=== PATIENT | male | born 1965 | race Caucasian/White ===

== ENCOUNTER 2016-08-05 18:38 | Inpatient (IN) | payer OTHER ==
[~2016-08-05] VITALS: Ht 185.4 cm; Wt 83.8 kg
[2016-08-05] MEDS ORDERED: cefTRIAXone SODIUM 1,000 MG in SODIUM CHLORIDE 50 ML IV ONE (21:40)
[2016-08-05 22:36] LABS: ANION GAP 13.9 MEQ/L (3-15)
[2016-08-05 22:40] LABS: MEAN CORPUSCULAR VOLUME 87 FL (80-100); MEAN PLATELET VOLUME 10.7 FL (6.0-9.5); PLATELET COUNT 258 10^3uL (150-450)
[2016-08-05 22:43] LABS: MEAN CORPUSCULAR HEMOGLOBIN 32.2 PG (26.0-34.0); MEAN CORPUSCULAR HGB CONC 37.2 g/dL (31.0-37.0)
[2016-08-05] MEDS ORDERED: HYDROmorphone 1 MG/ML (DILAUDID) SYRINGE IV ONE (23:15)
[2016-08-05 23:45] LABS: BAND NEUTROPHILS % 3 % (0-6); EOSINOPHILS % 0 % (0-4); LYMPHOCYTES # 1.8 #; MONOCYTES # 1.2 #; MONOCYTES % 8 % (3-11); SEGMENTED NEUTROPHILS % 77 % (51-67); TOTAL CELLS COUNTED 100
[2016-08-05 23:46] LABS: RBC MORPH NORMAL (NORMAL)
[2016-08-06] MEDS ORDERED: VANCOMYCIN PHARMACY PROTOCOL IV SCH
[2016-08-06] MEDS ORDERED: DOCUSATE SODIUM 100 MG (COLACE) CAP PO PRN
[2016-08-06] MEDS ORDERED: HYDROcodone/APAP 5 MG/325 MG (NORCO) TAB PO PRN
[2016-08-06] MEDS ORDERED: ACETAMINOPHEN 325 MG TAB (TYLENOL) PO PRN
--- NOTE | 2016-08-06 00:18 | NUR ---
Pt arrives to 318 via w/c from ED. Ambulates with assistance to weight chair and bed. Noted swelling and redness to nose with small black spot above left nare. Left axilla also has areas of slight swelling and healing. IVF started per order. See admission assessment for further details.
[2016-08-06] MEDS: D5 1/2 NS W/KCL 20 MEQ/L 1,000 ML IV SCH ×2 (00:21→11:28)
[2016-08-06 00:28] VITALS: BP 134/91
[2016-08-06 00:30] VITALS: BP 134/91
[2016-08-06] MEDS ORDERED: SODIUM CHLORIDE 250 ML ONE (01:03)
[2016-08-06] MEDS ORDERED: VANCOMYCIN 1000 MG VIAL ONE (01:03)
[2016-08-06 04:00] VITALS: BP 106/77
[2016-08-06 06:12] LABS: MEAN CORPUSCULAR VOLUME 87 FL (80-100); MEAN PLATELET VOLUME 10.7 FL (6.0-9.5); PLATELET COUNT 400 10^3uL (150-450); WHITE BLOOD COUNT 21.66 10^3uL (4.0-11.0)
--- NOTE | 2016-08-06 06:21 | NUR ---
Pt rests in long intervals. Up with staff assist x1 to use the bathroom. IVF infusing w/o difficulty. Resp even and non labored on RA.
[2016-08-06 06:43] LABS: MEAN CORPUSCULAR HEMOGLOBIN 31.3 PG (26.0-34.0); MEAN CORPUSCULAR HGB CONC 35.9 g/dL (31.0-37.0)
[2016-08-06 06:52] LABS: ANION GAP 14.1 MEQ/L (3-15)
[2016-08-06 07:15] LABS: BAND NEUTROPHILS % 1 % (0-6); EOSINOPHILS % 1 % (0-4); LYMPHOCYTES # 2.2 #; MONOCYTES # 1.5 #; MONOCYTES % 7 % (3-11); SEGMENTED NEUTROPHILS % 81 % (51-67); TOTAL CELLS COUNTED 100
[2016-08-06 07:16] LABS: RBC MORPH NORMAL (NORMAL)
[2016-08-06] MEDS ORDERED: NS FLUSH 3 ML PRN IV (08:05)
[2016-08-06] MEDS: FAMOTIDINE 20 MG (PEPCID) TABLET PO SCH ×2 (08:37→19:46)
[2016-08-06] MEDS: NS FLUSH 10 ML PRN IV ×3 (08:37→18:17)
[2016-08-06] MEDS: HYDROmorphone 1 MG/ML (DILAUDID) SYRINGE IV PRN ×4 (08:37→19:47)
[2016-08-06] MEDS: POTASSIUM CHLORIDE ORAL SOLUTION 20 MEQ/15 ML (KCL) UDC PO SCH ×2 (08:37→16:54)
[2016-08-06] MEDS: NS FLUSH 3 ML DAILY IV SCH ×2 (08:38→19:47)
--- NOTE | 2016-08-06 08:40 | NUR ---
Pt sitting on edge of bed- rates head/nose pain 02/12- states "hurts so bad I don't even want to eat." Dilaudid 0.5mg IV given as ordered slow push. IVF infusing as ordered +Vanco 1g infusing as ordered. Pt takes K+ in orange juice on ice without difficulty. call light within reach.
[2016-08-06] MEDS: VANCOMYCIN 1,000 MG in SODIUM CHLORIDE 250 ML IV SCH ×3 (08:52→21:58)
[2016-08-06 08:53] VITALS: BP 122/80
--- NOTE | 2016-08-06 11:30 | NUR ---
MED REC COMPLETE--patient reports no home medications.
--- NOTE | 2016-08-06 13:33 | NUR ---
[place] 5mg PO given for c/o facial/head pain rated 8/10. Pt resting in bed. IVF cont at ordered rate
[2016-08-06] MEDS ORDERED: CLINDAMYCIN 600 MG/4ML (CLEOCIN) VIAL IM SCH (14:05)
[2016-08-06] MEDS: NICOTINE 21 MG (NICODERM) PATCH TD SCH (14:29)
[2016-08-06] MEDS: CLINDAMYCIN INJ 600 MG in SODIUM CHLORIDE 50 ML IV SCH ×2 (14:30→21:20)
--- NOTE | 2016-08-06 14:35 | NUR ---
Pt given Dilaudid 0.5mg IV for 10/[address] Larson cultured wound on nose.
--- NOTE | 2016-08-06 15:30 | NUR ---
Vancomycin Dosing: Pharmacy Managed S: Facial cellulitis O: 50 yo male with erythema and swelling to nose; blood culture pending, abscess culture pending; WBC 21,666 with 81% neutrophils, SCr 0.81 mg/dL, CrCl > 100 mL/min. A/P: Vancomycin and clindamycin initiated empirically. Recommend vancomycin 1 gram IV every 8 hours to achieve therapeutic goal of trough of ~15 mcg/mL. Draw trough prior to 5th dose (08/07/16 at 0530).
[2016-08-06 15:47] VITALS: BP 128/77
[2016-08-06] MEDS: KETOROLAC 15 MG/ML (TORADOL) 1 ML VIAL IV SCH ×2 (16:44→23:44)
[2016-08-06] MEDS ORDERED: KETOROLAC 15 MG/ML (TORADOL) 1 ML VIAL ONE (16:44)
--- NOTE | 2016-08-06 17:50 | NUR ---
Pt given Dilaudid 0.5mg IV at 1645 for 02/12 headache. Ketoralac 15mg IV given as well. Pt requests to shower today. Emerita, sister called by this nurse to bring clean clothes. Addendum: 08/06/16 at 1752 by Carolyn Guzman RN Eating supper meal.
[2016-08-06] MEDS: HYDROcodone/APAP 5 MG/325 MG (NORCO) TAB PO PRN (18:17)
[2016-08-06] MEDS: ONDANSETRON 2 MG/ML (Z0FRAN) 2 ML VIAL IV PRN (18:17)
--- NOTE | 2016-08-06 18:22 | NUR ---
Pt requests medication for nausea- Zofran given as ordered. [place] 5mg 2 tabs given for head/face pain rated 10/10.
--- NOTE | 2016-08-06 20:09 | NUR ---
Pt sitting on side of bed, states continues to have pain in head area, will give Dilaudid 0.5mg IV PRN, educated pt on PRN schedule. PM assessment done, lungs clear, denies dyspnea, on room air. Abdomen soft, non-tender. Requests supper tray items be left in room for him to snack on. IV to right hand patent, flushes easily with med administration. Educated regarding pt safety due to narcotic medications being given, pt verbalizes understanding and will call for assistance ambulating. Call light in reach. Will round frequently for cares.
[2016-08-06] MEDS ORDERED: NS 100 ML (IVPB) BAG IV PRN (21:30)
[2016-08-06 23:54] VITALS: BP 135/78
--- NOTE | 2016-08-07 00:07 | NUR ---
Pt continues to complain of pain to head area, increased drainage noted from left nostril, chux provided to lay on bed to prevent saturating sheet. Scheduled Toradol 15mg given, will continue to monitor pain and give PRN meds to control pain.
[2016-08-07] MEDS: HYDROcodone/APAP 5 MG/325 MG (NORCO) TAB PO PRN ×4 (00:27→19:47)
--- NOTE | 2016-08-07 01:15 | NUR ---
Patient encouraged to call for any needs and assured that staff would be checking on him.
--- NOTE | 2016-08-07 02:20 | NUR ---
Patient resting quietly with eyes closed.
--- NOTE | 2016-08-07 03:20 | NUR ---
Resting quietly with eyes closed. Patient has changed position from last check.
[2016-08-07] MEDS: HYDROmorphone 1 MG/ML (DILAUDID) SYRINGE IV PRN ×2 (04:17→07:01)
[2016-08-07] MEDS: NS FLUSH 10 ML PRN IV ×4 (04:17→11:18)
--- NOTE | 2016-08-07 04:17 | NUR ---
Dilaudid given for pain rated 9/10. Nose remains red and swollen.
[2016-08-07 06:05] LABS: BASOPHILS % (AUTO) 0 % (0-2); EOSINOPHILS # (AUTO) 0.1 10^3uL; EOSINOPHILS % (AUTO) 1 % (0-4); LYMPHOCYTES # (AUTO) 1.8 X10^3; MEAN CORPUSCULAR VOLUME 89 FL (80-100); MEAN PLATELET VOLUME 10.9 FL (6.0-9.5); MONOCYTES # (AUTO) 0.7 X10^3; MONOCYTES % (AUTO) 5 % (3-11); NEUTROPHILS # (AUTO) 10.9 X10^3; NEUTROPHILS % (AUTO) 80 % (51-67); PLATELET COUNT 378 10^3uL (150-450); WHITE BLOOD COUNT 13.62 10^3uL (4.0-11.0)
[2016-08-07 06:07] LABS: MEAN CORPUSCULAR HEMOGLOBIN 31.4 PG (26.0-34.0); MEAN CORPUSCULAR HGB CONC 35.6 g/dL (31.0-37.0)
[2016-08-07] MEDS: KETOROLAC 15 MG/ML (TORADOL) 1 ML VIAL IV SCH ×3 (06:12→17:17)
[2016-08-07] MEDS: CLINDAMYCIN INJ 600 MG in SODIUM CHLORIDE 50 ML IV SCH ×3 (06:13→21:05)
[2016-08-07] MEDS: VANCOMYCIN 1,000 MG in SODIUM CHLORIDE 250 ML IV SCH (07:00)
--- NOTE | 2016-08-07 07:05 | NUR ---
Reports pain at 8. Dilaudid and [place] given at this time. Patient is more talkative this morning and facial redness seems to be decreasing.
[2016-08-07 07:51] VITALS: BP 123/84
[2016-08-07] MEDS: FAMOTIDINE 20 MG (PEPCID) TABLET PO SCH ×2 (08:47→19:47)
[2016-08-07] MEDS: POTASSIUM CHLORIDE ORAL SOLUTION 20 MEQ/15 ML (KCL) UDC PO SCH ×2 (08:47→17:38)
[2016-08-07] MEDS: NS FLUSH 3 ML DAILY IV SCH ×2 (08:47→21:05)
--- NOTE | 2016-08-07 09:17 | NUR ---
Pt ambulating around room indep. Vanco complete- pharmacy changing dose due to low Vanco trough. SL intact to [facility]- coban in place for securement. Pt states that his pain in his face/head is not as bad as last night, rating current pain at 6/10- redness/swelling remains to Left side of nose and below left eye- decreased from yesterday. Will cont to monitor patient.
--- NOTE | 2016-08-07 09:53 | NUR ---
Vancomycin Dosing: Pharmacy Managed S: Facial cellulitis O: 50 yo male with erythema and swelling to nose; blood culture pending, abscess culture pending; WBC 21,666 with 81% neutrophils, SCr 0.81 mg/dL, CrCl > 100 mL/min. A/P: Vancomycin and clindamycin initiated empirically. Recommend vancomycin 1 gram IV q8h. Received trough today at 8.3. Increased to Vanco 1750mg IV q8h with a predicted trough of 15.5mg/L to be drawn 08/09/16 @ 0530.
--- NOTE | 2016-08-07 10:27 | NUR ---
Dr. Larson at bedside.
[2016-08-07] MEDS: NICOTINE 21 MG (NICODERM) PATCH TD SCH (13:00)
--- NOTE | 2016-08-07 13:17 | NUR ---
Clindamycin infusing as ordered. [place] 5mg 2tabs PO given for headache.
[2016-08-07] MEDS: VANCOMYCIN 1750 MG in NS IV 475 ML IV SCH ×2 (13:55→22:00)
[2016-08-07] MEDS: VANCOMYCIN COMPOUNDED BY PHARMACY IV SCH ×2 (13:55→22:00)
[2016-08-07 16:04] VITALS: BP 136/62
[2016-08-07] MEDS: ONDANSETRON 2 MG/ML (Z0FRAN) 2 ML VIAL IV PRN (17:17)
--- NOTE | 2016-08-07 17:22 | NUR ---
Vanco infusion complete- IV SL. Zofran given for c/o nausea. Toradol given as scheduled.
--- NOTE | 2016-08-07 17:38 | NUR ---
Pt refused KCL liquid and asked nurse to hold supper tray for later due to nausea.
--- NOTE | 2016-08-07 19:50 | NUR ---
Pt resting in bed, alert & oriented x4, speech clear. States has pain in head over nasal area, [place] 2 tabs given per PRN schedule. Abdomen soft, non-tender. New IV site to right forearm initiated, flushes easily. Discussed plan of care and medication schedule for next 12 hours, verbalizes understanding. Call light in reach. Will round frequently for cares.
[2016-08-08 00:15] VITALS: BP 140/70
[2016-08-08] MEDS: NS FLUSH 10 ML PRN IV ×4 (01:11→21:45)
[2016-08-08] MEDS: HYDROcodone/APAP 5 MG/325 MG (NORCO) TAB PO PRN ×3 (01:12→16:23)
[2016-08-08] MEDS: KETOROLAC 15 MG/ML (TORADOL) 1 ML VIAL IV SCH ×3 (01:12→13:24)
--- NOTE | 2016-08-08 01:19 | NUR ---
[place] given for pain rated 7/10. Snack provided. Patient sits at edge of bed for snack. left side of nose has been draining this shift. Contact precautions maintained.
[2016-08-08] MEDS: CLINDAMYCIN INJ 600 MG in SODIUM CHLORIDE 50 ML IV SCH ×3 (05:19→21:45)
[2016-08-08] MEDS: VANCOMYCIN COMPOUNDED BY PHARMACY IV SCH ×3 (06:00→22:00)
[2016-08-08] MEDS: VANCOMYCIN 1750 MG in NS IV 475 ML IV SCH ×3 (06:13→22:05)
--- NOTE | 2016-08-08 06:38 | NUR ---
Patient has had persistent pain throughout shift which has been rated about 7 each time he was asked. Denies needs at this time. Is awake and using cell phone. Vancomycin infusing.
[2016-08-08 07:44] VITALS: BP 130/70
--- NOTE | 2016-08-08 08:00 | NUR ---
Watching TV. Playing on computer. Area on left side of nose slowly healing. Remains reddened. Patient applies Bactroban ointment to outer and inner side of nose on the left. Reminded to wash hands. 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 Cooperative with cares. Call light within reach.
[2016-08-08] MEDS: POTASSIUM CHLORIDE ORAL SOLUTION 20 MEQ/15 ML (KCL) UDC PO SCH ×2 (08:54→17:50)
[2016-08-08] MEDS: FAMOTIDINE 20 MG (PEPCID) TABLET PO SCH ×2 (08:54→21:44)
--- NOTE | 2016-08-08 09:45 | NUR ---
Back on the floor from CT scan.
[2016-08-08 10:33] LABS: BASOPHILS % (AUTO) 1 % (0-2); EOSINOPHILS # (AUTO) 0.3 10^3uL; EOSINOPHILS % (AUTO) 4 % (0-4); LYMPHOCYTES # (AUTO) 1.4 X10^3; MEAN CORPUSCULAR VOLUME 89 FL (80-100); MEAN PLATELET VOLUME 10.2 FL (6.0-9.5); MONOCYTES # (AUTO) 0.5 X10^3; MONOCYTES % (AUTO) 6 % (3-11); NEUTROPHILS # (AUTO) 5.3 X10^3; NEUTROPHILS % (AUTO) 71 % (51-67); PLATELET COUNT 370 10^3uL (150-450); WHITE BLOOD COUNT 7.49 10^3uL (4.0-11.0)
[2016-08-08 10:35] LABS: MEAN CORPUSCULAR HEMOGLOBIN 31.5 PG (26.0-34.0); MEAN CORPUSCULAR HGB CONC 35.5 g/dL (31.0-37.0)
[2016-08-08] MEDS: MUPIROCIN 2% OINT 22 GM (BACTROBAN) TUBE TOP SCH ×2 (14:40→17:51)
[2016-08-08] MEDS: NICOTINE 21 MG (NICODERM) PATCH TD SCH (14:54)
[2016-08-08 15:38] VITALS: BP 127/89
--- NOTE | 2016-08-08 18:32 | NUR ---
Patient reports that overall his nose and facial pain has improved- he has only taken 2 oral doses of [place] 5 today and no IV pain medication. The patient reports that radiology staff were unable to use his IV in the right forearm this morning but the site flushed well and antibiotics were given through the site without redness or edema.
[2016-08-09 00:19] VITALS: BP 119/83
[2016-08-09] MEDS: CLINDAMYCIN INJ 600 MG in SODIUM CHLORIDE 50 ML IV SCH (05:38)
[2016-08-09] MEDS: VANCOMYCIN COMPOUNDED BY PHARMACY IV SCH (05:46)
[2016-08-09] MEDS: VANCOMYCIN 1750 MG in NS IV 475 ML IV SCH (06:12)
--- NOTE | 2016-08-09 06:47 | NUR ---
Patient rested well tonight. Fell asleep around midnight. Tolerates antibiotics well. No discomforts voiced this morning. Did not ask for any pain medication since early evening. No needs at this time.
[2016-08-09 07:35] VITALS: BP 125/98
[2016-08-09] MEDS: POTASSIUM CHLORIDE ORAL SOLUTION 20 MEQ/15 ML (KCL) UDC PO SCH (08:43)
[2016-08-09] MEDS: FAMOTIDINE 20 MG (PEPCID) TABLET PO SCH (08:43)
[2016-08-09] MEDS: HYDROcodone/APAP 5 MG/325 MG (NORCO) TAB PO PRN (08:44)
[2016-08-09] MEDS: NS FLUSH 3 ML DAILY IV SCH (08:44)
[2016-08-09] MEDS: MUPIROCIN 2% OINT 22 GM (BACTROBAN) TUBE TOP SCH (08:49)
--- NOTE | 2016-08-09 08:56 | NUR ---
NUTRITION ASSESSMENT Level 1 Patient: Marquez Garcia Age/Sex: 50/M Date Screened: 08-08-16 Weight: 184.3#/83.8 kg Height: 73 inches Primary Diagnosis: SIRS/sepsis from facial cellulitis Diet Order: regular Relevant labs: N/A Food allergies: N Nutrition Assessment Criteria Age over 80: N Body Mass Index (BMI) under 19: N Admission Screening Indicates Risk? N Moderate/High Risk Diagnosis: 3 points TPN or PPN: N NPO or clear liquid diet: N Serum Glucose <70 or >180: N/A Hgb A1c >6.7: N/A Total: 3 points Risk Screen: __ Patient at low nutritional risk based on available data; reevaluate in 5-7 days _X_ Patient at moderate nutritional risk based on available data; reevaluate in 3-5 days __ Patient at high nutritional risk; complete Nutrition Assessment within 48 hours of admission. Comments: Eating 75-100% most meals, no problems chewing or swallowing. No GI concerns noted. No weight changes. Will reassess as documented above.
--- NOTE | 2016-08-09 10:20 | NUR ---
Dr. Nickerson here for consultation.
--- NOTE | 2016-08-09 13:20 | NUR ---
Gave the patient discharge instructions and written scripts for pain medication and antibiotics. Educated him on the importance of finishing all antibiotics until they are gone and not to stop even if feeling better. Patient demonstrated verbal understanding.
--- NOTE | 2016-08-09 13:27 | NUR ---
Patient dismissed ambulatory accompanied by a VIDEO PRESENTATION OPERATOR.
[2016-08-09] MEDS ORDERED: CLINDAMYCIN 150 MG (CLEOCIN) CAP PO SCH (14:00)
== END 2016-08-09 13:27 | disposition home or self-care (01) | DRG 872 ==
LOC: ED 18:40 → MED/SURG 23:45
PROVIDERS: ADMIT Emergency Medicine; ATTEND Emergency Medicine
DX: A41.9 Sepsis, unspecified organism (principal); J34.0 Abscess, furuncle and carbuncle of nose; E86.0 Dehydration; E87.6 Hypokalemia; L73.8 Other specified follicular disorders; F20.9 Schizophrenia, unspecified; F31.9 Bipolar disorder, unspecified; B95.62 Methicillin resistant Staphylococcus aureus infection as the cause of diseases classified elsewhere; F17.210 Nicotine dependence, cigarettes, uncomplicated
CPT/HCPCS: 36415; 70488; 80048; 80202; 83605; 85025; 86140; 87040; 87070; 87147; 87186; 96365; 96375; 99283